=== PATIENT | male | born 1950 | race Hispanic/Latino ===

== ENCOUNTER 2017-03-23 13:26 | Inpatient (IN) | payer MEDICARE ==
[2017-03-23 15:49] VITALS: BMI 33.5
--- NOTE | 2017-03-23 16:02 | CP.PCM.HP ---
History of Present Illness - History of Present Illness History of Present Illness: Chief complaint status post right total knee surgery History of present illness: This is a 66-year-old male with past medical history of hypertension, diabetes, right DJD, hyperlipidemia, and osteoarthritis presenting status post right total knee surgery at [facility] 3 days ago. Patient states he has had knee trouble for years, and has failed outpatient therapy. He has no other complaints at this time, vitals are stable and he is in no acute distress. Review of systems: Per HPI, all other systems reviewed and negative by me Past medical history hypertension, diabetes mellitus, right DJD, hyperlipidemia , osteoarthritis Past surgical history: Denies other than recent right total knee Family history: Denies Social history: Former smoker 20 years ago smoked socially for 20 years, denies alcohol, denies IV drug abuse Medications as below No known drug allergies Vitals REVIEWED Vital signs as documented. Gen: WDWN, cooperative, alert HEENT: NCAT, PERRL, EOMI, no erythema, exudates, gross hearing intact, no lesions Neck: Soft, supple, no lymphadenopathy, no JVD Heart: +S1S2, RRR, No MRG Lung: CTAB, No WRR Abd: soft, NT, ND, BSx4, no HSM, no masses Ext: warm, well perfused, pedal pulses intact Neuro: AAOx3, Strength equal bilaterally UE/LE Skin: Warm, Dry, no rash Psych: Normal mood, affect with appropriate range Laboratory results reviewed in chart Assessment and plan This is a 66-year-old male with past medical history of hypertension, diabetes, right DJD, hyperlipidemia, and osteoarthritis presenting status post right total knee surgery at [facility] 3 days ago. Patient states he has had knee trouble for years, and has failed outpatient therapy. He has no other complaints at this time, vitals are stable and he is in no acute distress. Status post right total knee surgery Postop day #3 Dr. Lopes from [facility], orthopedic surgeon Pain control with Percocet Zofran for nausea VTE prophylaxis Lovenox 30 mg subcutaneous every 12 hours Physical therapy and occupational therapy Hypertension Stable Continue lisinopril 10 mg by mouth daily Diabetes mellitus Accu-Cheks Continue metformin and Januvia Insulin sliding scale Hyperlipidemia Continue simvastatin Stable VTE prophylaxis with Lovenox 30 mg subcutaneous every 12 hours For constipation Colace 100 mg by mouth twice a day when necessary Present on Admission - Present on Admission Any Indicators Present on Admission: No Past Patient History - Tetanus Immunizations Tetanus Immunization: >10 years Ago - Past Medical History & Family History Past Medical History?: Yes - Past Social History Smoking Status: Former Smoker Chewing Tobacco Use: No - CARDIAC Hx Cardiac Disorders: Yes Hx Hypercholesterolemia: Yes Hx Hypertension: Yes - PULMONARY Hx Respiratory Disorders: No - NEUROLOGICAL Hx Neurological Disorder: No - HEENT Hx HEENT Problems: Yes Hx Cataracts: Yes (SINCE RIGHT EYE-NO SURGERY) - RENAL Hx Chronic Kidney Disease: No - ENDOCRINE/METABOLIC Hx Diabetes Mellitus Type 2: Yes - HEMATOLOGICAL/ONCOLOGICAL Hx Blood Disorders: No - INTEGUMENTARY Hx Dermatological Problems: No - MUSCULOSKELETAL/RHEUMATOLOGICAL Hx Musculoskeletal Disorders: Yes Hx Osteoarthritis: Yes - GASTROINTESTINAL Hx Gastrointestinal Disorders: No - GENITOURINARY/GYNECOLOGICAL Hx Genitourinary Disorders: No - PSYCHIATRIC Hx Psychophysiologic Disorder: No - SURGICAL HISTORY Hx Surgeries: Yes - ANESTHESIA Hx Anesthesia: Yes Hx Anesthesia Reactions: No Hx Malignant Hyperthermia: No Meds Allergies/Adverse Reactions: Allergies Allergy/AdvReac Type Severity Reaction Status Date / Time No Known Allergies Allergy Verified 03/23/17 15:47
[2017-03-23] MEDS ORDERED: Enoxaparin 30 mg Syringe SC SCH (16:15)
[2017-03-23] MEDS: Oxycodone/Acetaminophen 5/325 mg Tab PO PRN ×2 (16:54→23:53)
[2017-03-23] MEDS: Pravastatin Sodium 20 MG TAB PO SCH (21:00)
[2017-03-24] MEDS: Oxycodone/Acetaminophen 5/325 mg Tab PO PRN ×5 (04:59→22:50)
[2017-03-24 07:31] LABS: HEMOGLOBIN 9.6 g/dL (12.0-18.0); MEAN CELL VOLUME 83.6 fl (80.0-94.0); MEAN CORPUSCULAR HEMOGLOBIN 28.7 pg (27.0-31.0); MEAN CORPUSCULAR HGB CONC 34.3 g/dL (33.0-37.0); RBC 3.36 Mil/uL (4.40-5.90); RED CELL DISTRIBUTION WIDTH 14.8 % (11.5-14.5); WHITE BLOOD COUNT 8.1 K/uL (4.8-10.8)
[2017-03-24 07:41] LABS: BLOOD UREA NITROGEN 15 mg/dl (9-20); GFR AFRICAN-AMERICAN > 60; GFR NON-AFRICAN AMERICAN > 60
[2017-03-24] MEDS: Multivitamin With Minerals Tab PO SCH (08:42)
[2017-03-24] MEDS: Enoxaparin 30 mg Syringe SC SCH ×2 (08:42→21:29)
[2017-03-24] MEDS: Pravastatin Sodium 20 MG TAB PO SCH (21:29)
[2017-03-25] MEDS: Oxycodone/Acetaminophen 5/325 mg Tab PO PRN ×4 (05:33→22:02)
[2017-03-25 08:27] VITALS: RESP 20
[2017-03-25] MEDS: Enoxaparin 30 mg Syringe SC SCH ×2 (08:40→21:19)
[2017-03-25] MEDS: Multivitamin With Minerals Tab PO SCH (08:41)
[2017-03-25] MEDS: Pravastatin Sodium 20 MG TAB PO SCH (21:18)
[2017-03-26] MEDS: Oxycodone/Acetaminophen 5/325 mg Tab PO PRN ×6 (02:03→22:07)
[2017-03-26] MEDS: Multivitamin With Minerals Tab PO SCH (08:15)
[2017-03-26] MEDS: Enoxaparin 30 mg Syringe SC SCH ×2 (08:16→21:27)
--- NOTE | 2017-03-26 17:39 | CP.PCM.CON ---
History of Present Illness - History of Present Illness History of Present Illness: Dr Jang PMR consultation on Thompson Ny, born 1950, who has been admitted to [facility] TCU following a right TKR post op feels very good pain is well controlled had a BMx2 today good appetite using CPM Review of Systems - Constitutional Constitutional: absent: Anorexia, Chills - EENT Eyes: absent: Blurred Vision Nose/Mouth/Throat: absent: Nasal Congestion - Cardiovascular Cardiovascular: absent: Chest Pain - Respiratory Respiratory: absent: Cough, Dyspnea - Gastrointestinal Gastrointestinal: absent: Abdominal Pain Past Patient History - Tetanus Immunizations Tetanus Immunization: >10 years Ago - Past Medical History & Family History Past Medical History?: Yes - Past Social History Smoking Status: Former Smoker (quit >20 years ago) Alcohol: Social Drugs: Denies Home Situation {Lives}: Alone (has girlfriend, ground floor) - CARDIAC Hx Cardiac Disorders: Yes - PULMONARY Hx Respiratory Disorders: No - NEUROLOGICAL Hx Neurological Disorder: No - HEENT Hx HEENT Problems: Yes Hx Cataracts: Yes (SINCE RIGHT EYE-NO SURGERY) - RENAL Hx Chronic Kidney Disease: No - ENDOCRINE/METABOLIC Hx Diabetes Mellitus Type 2: Yes - HEMATOLOGICAL/ONCOLOGICAL Hx AIDS: No Hx Human Immunodeficiency Virus (HIV): No - INTEGUMENTARY Hx Dermatological Problems: No - MUSCULOSKELETAL/RHEUMATOLOGICAL Hx Falls: No - GASTROINTESTINAL Hx Gastrointestinal Disorders: No - GENITOURINARY/GYNECOLOGICAL Hx Genitourinary Disorders: No - PSYCHIATRIC Hx Psychophysiologic Disorder: No - SURGICAL HISTORY Hx Surgeries: Yes - ANESTHESIA Hx Anesthesia: Yes Hx Anesthesia Reactions: No Hx Malignant Hyperthermia: No Meds Allergies/Adverse Reactions: Allergies Allergy/AdvReac Type Severity Reaction Status Date / Time No Known Allergies Allergy Verified 03/23/17 15:47 - Medications Medications: Current Medications Docusate Sodium (Colace) 100 mg PO BID [facility] Last Admin: 03/26/17 16:48 Dose: 100 mg Enoxaparin Sodium (Lovenox) 30 mg SC Q12 [facility] PRN Reason: Protocol Last Admin: 03/26/17 08:16 Dose: 30 mg Lisinopril (Zestril) 10 mg PO DAILY [facility] Last Admin: 03/26/17 08:15 Dose: 10 mg Metformin HCl (Glucophage) 850 mg PO BID [facility] Last Admin: 03/26/17 16:48 Dose: 850 mg Multivitamins/Minerals (Therapeutic-M Tab) 1 tab PO DAILY [facility] Last Admin: 03/26/17 08:15 Dose: 1 tab Pravastatin Sodium (Pravachol) 20 mg PO HS [facility] Last Admin: 03/25/17 21:18 Dose: 20 mg Sitagliptin Phosphate (Januvia) 100 mg PO DAILY [facility] Last Admin: 03/26/17 08:16 Dose: 100 mg Physical Exam - Constitutional Appears: Non-toxic, No Acute Distress - Head Exam Head Exam: ATRAUMATIC, NORMAL INSPECTION, NORMOCEPHALIC - ENT Exam ENT Exam: Mucous Membranes Moist - Respiratory Exam Respiratory Exam: NORMAL BREATHING PATTERN - Cardiovascular Exam Cardiovascular Exam: REGULAR RHYTHM - GI/Abdominal Exam GI & Abdominal Exam: absent: Distended - Extremities Exam Extremities exam: Positive for: pedal edema (mild). Negative for: calf tenderness - Neurological Exam Neurological exam: Alert, CN II-XII Intact, Oriented x3 - Psychiatric Exam Psychiatric exam: Normal Affect, Normal Mood Results - Vital Signs Recent Vital Signs: Last Vital Signs Temp 98.2 F 03/26/17 16:43 Pulse 99 H 03/26/17 16:43 Resp 20 03/26/17 16:43 BP 150/84 03/26/17 16:43 Pulse Ox 100 03/26/17 16:43 - Labs Result Diagrams: 03/24/17 06:30 03/24/17 06:30 Labs: Laboratory Results - last 24 hr 03/25/17 03/26/17 03/26/17 20:54 06:04 11:00 POC Glucose (mg/dL) 212 H 201 H 199 H 03/26/17 16:04 POC Glucose (mg/dL) 242 H Assessment & Plan - Assessment and Plan (Free Text) Assessment: PT/OT to continue to help increase functional independence Pain: controlled Vascular: no evidence of DVT GI: No evidence of constipation or diarrhea Patient continues to be an excellent TCU rehabilitation candidate and will have continued focused PT, OT and recreational therapy to help facilitate a safe and appropriate d/c plan
[2017-03-26] MEDS: Pravastatin Sodium 20 MG TAB PO SCH (21:26)
[2017-03-27] MEDS: Oxycodone/Acetaminophen 5/325 mg Tab PO PRN ×5 (03:28→21:18)
[2017-03-27] MEDS: Enoxaparin 30 mg Syringe SC SCH ×2 (08:35→21:19)
[2017-03-27] MEDS: Multivitamin With Minerals Tab PO SCH (08:36)
--- NOTE | 2017-03-27 13:47 | CP.PCM.PN ---
Subjective - Date & Time of Evaluation Date of Evaluation: 03/27/17 Time of Evaluation: 13:30 - Subjective Subjective: Hospitalist Progress Note (Patient was seen and examined at 1:30 PM 03/27/17 [id number] ) 66 year old male who is S/P Right TKR at [facility] on 03/20/17 and was transferred to TCU for PT/OT. Currently upon FULL ROS: NO chest pain, NO palpitations, NO SOB/Cough/Wheezing, NO Abdominal Pain, NO n/v /d/c, NO burning/pain with urinations, NO lightheadedness/dizziness, NO headaches, NO new changes in vision/eye pain, NO new changes in hearing/ear pain , NO paresthesias Exam: HEENT: NCA, EOMI, PERRLA, NO lymphadenopathy, NO thyromegaly, NO pharyngeal erythema/exudate, Nasal Turbinates are moist/nonerythematous/nonedematous, Oral mucosa is moist Cardio: NS1 and NS2, NO M/R/G Resp: CTA B/L, NO R/R/W GI: BSx4, Soft, NT, ND, NO HSM, NO guarding/rebound tenderness Neuro: CN II through XII Extremities: Pulses are strong and equal, Capillary Refill is 2 seconds, Right Knee Surgical Site with Norah without signs of cellulitis and there is NO wound dehiscence or exudate Assessment and Plan: 1). S/P Right TKR POD #7 PT/OT Lovenox 30 mg SC Q12H 2). Hx HTN Lisinopril 10 mg PO 1x/day 3). Hx DM 2 Metformin 850 mg PO 2x/day Januvia 100 mg PO 1x/day 4). Hx HLD Pravastatin 20 mg PO HS 5). Anemia Secondary to Chronic Disease? F/U CBC with differential 03/28/17 to make sure that the HgB/Hct are stable. 5). Prophylactic Measures Colace 100 mg PO 2x/day Lovenox 30 mg SC Q12H MVI 1 tablet PO 1x/day Percocet 1 tab PO PRN Moderate Pain and 2 tab PO PRN Severe Pain Objective - Vital Signs/Intake and Output Vital Signs (last 24 hours): Temp Pulse Resp BP Pulse Ox 98.1 F 82 20 143/70 99 03/27/17 10:00 03/27/17 10:00 03/27/17 10:00 03/27/17 10:00 03/27/17 10:00 - Medications Medications: Current Medications Docusate Sodium (Colace) 100 mg PO BID [facility] Last Admin: 03/27/17 08:35 Dose: 100 mg Enoxaparin Sodium (Lovenox) 30 mg SC Q12 [facility] PRN Reason: Protocol Last Admin: 03/27/17 08:35 Dose: 30 mg Lisinopril (Zestril) 10 mg PO DAILY [facility] Last Admin: 03/27/17 08:36 Dose: 10 mg Metformin HCl (Glucophage) 850 mg PO BID [facility] Last Admin: 03/27/17 08:36 Dose: 850 mg Multivitamins/Minerals (Therapeutic-M Tab) 1 tab PO DAILY [facility] Last Admin: 03/27/17 08:36 Dose: 1 tab Oxycodone/Acetaminophen (Percocet 5/325 Mg Tab) 2 tab PO Q4 PRN PRN Reason: Pain, severe (8-10) Stop: 03/29/17 18:08 Last Admin: 03/27/17 13:04 Dose: 2 tab Oxycodone/Acetaminophen (Percocet 5/325 Mg Tab) 1 tab PO Q4 PRN PRN Reason: Pain, moderate (4-7) Stop: 03/29/17 18:09 Last Admin: 03/27/17 03:28 Dose: 1 tab Pravastatin Sodium (Pravachol) 20 mg PO HS [facility] Last Admin: 03/26/17 21:26 Dose: 20 mg Sitagliptin Phosphate (Januvia) 100 mg PO DAILY [facility] Last Admin: 03/27/17 08:36 Dose: 100 mg - Labs Labs: 03/24/17 06:30 03/24/17 06:30
[2017-03-27] MEDS: Pravastatin Sodium 20 MG TAB PO SCH (21:19)
[2017-03-28] MEDS: Oxycodone/Acetaminophen 5/325 mg Tab PO PRN ×4 (03:19→20:23)
[2017-03-28 07:11] LABS: BASO % 0.6 % (0.0-2.0); EOS # 0.1 K/uL (0.0-0.7); HEMOGLOBIN 9.4 g/dL (12.0-18.0); LYMPH # 1.4 K/uL (1.0-4.3); LYMPH % 21.4 % (20.0-40.0); MEAN CELL VOLUME 84.3 fl (80.0-94.0); MEAN CORPUSCULAR HEMOGLOBIN 28.3 pg (27.0-31.0); MEAN CORPUSCULAR HGB CONC 33.6 g/dL (33.0-37.0); MEAN PLATELET VOLUME 7.8 fl (7.2-11.7); MONO # 0.7 K/uL (0.0-0.8); MONO % 10.7 % (0.0-10.0); NEUT # 4.3 K/uL (1.8-7.0); NEUT % 65.3 % (50.0-75.0); NRBC % 0.1 % (0.0-0.0); RBC 3.32 Mil/uL (4.40-5.90); WHITE BLOOD COUNT 6.6 K/uL (4.8-10.8)
[2017-03-28 07:17] LABS: ALB/GLOB RATIO 1.1 (1.0-2.1); ALBUMIN 3.6 g/dL (3.5-5.0); ALT/SGPT 45 U/L (21-72); AST/SGOT 41 U/L (17-59); BLOOD UREA NITROGEN 16 mg/dl (9-20); CALCIUM 9.3 mg/dL (8.4-10.2); GFR AFRICAN-AMERICAN > 60; GFR NON-AFRICAN AMERICAN > 60
[2017-03-28] MEDS: Enoxaparin 30 mg Syringe SC SCH ×2 (08:49→21:25)
[2017-03-28] MEDS: Multivitamin With Minerals Tab PO SCH (08:50)
[2017-03-28] MEDS: Pravastatin Sodium 20 MG TAB PO SCH (21:25)
[2017-03-29] MEDS: Oxycodone/Acetaminophen 5/325 mg Tab PO PRN ×2 (02:41→08:33)
[2017-03-29 07:55] VITALS: BP 131/74; PULSE 79; TEMP 97.7; O2SAT 100
[2017-03-29] MEDS: Enoxaparin 30 mg Syringe SC SCH (08:34)
[2017-03-29] MEDS: Multivitamin With Minerals Tab PO SCH (08:34)
--- NOTE | 2017-03-29 12:06 | CP.PCM.DIS ---
Provider - Provider Date of Admission: 03/23/17 15:49 Attending physician: Lizy De La Cruz DO Consults: Dr Jang Time Spent in preparation of Discharge (in minutes): 35 Diagnosis - Discharge Diagnosis (1) Status post total knee replacement, right Status: Acute Comment: continue PT on outpatient basis 3x a week (2) Hypertension Status: Chronic Comment: BP stable. on Lisinopril (3) DM2 (diabetes mellitus, type 2) Status: Acute Comment: BS uncontrolled. Metformin 850mg PO BID. Januvia 100mg PO OD (4) Acute blood loss anemia Status: Acute Comment: from blood loss during surgery Hospital Course - Lab Results Lab Results: Most Recent Lab Values WBC 6.6 K/uL (4.8-10.8) 03/28/17 06:15 RBC 3.32 Mil/uL (4.40-5.90) L 03/28/17 06:15 Hgb 9.4 g/dL (12.0-18.0) L 03/28/17 06:15 Hct 28.0 % (35.0-51.0) L 03/28/17 06:15 MCV 84.3 fl (80.0-94.0) 03/28/17 06:15 MCH 28.3 pg (27.0-31.0) 03/28/17 06:15 MCHC 33.6 g/dL (33.0-37.0) 03/28/17 06:15 RDW 15.0 % (11.5-14.5) H 03/28/17 06:15 Plt Count 313 K/uL (130-400) D 03/28/17 06:15 MPV 7.8 fl (7.2-11.7) 03/28/17 06:15 Neut % (Auto) 65.3 % (50.0-75.0) 03/28/17 06:15 Lymph % (Auto) 21.4 % (20.0-40.0) 03/28/17 06:15 [place] % (Auto) 10.7 % (0.0-10.0) H 03/28/17 06:15 Eos % (Auto) 2.0 % (0.0-4.0) 03/28/17 06:15 Baso % (Auto) 0.6 % (0.0-2.0) 03/28/17 06:15 Neut # 4.3 K/uL (1.8-7.0) 03/28/17 06:15 Lymph # 1.4 K/uL (1.0-4.3) 03/28/17 06:15 [place] # 0.7 K/uL (0.0-0.8) 03/28/17 06:15 Eos # 0.1 K/uL (0.0-0.7) 03/28/17 06:15 Baso # 0.0 K/uL (0.0-0.2) 03/28/17 06:15 Sodium 135 mmol/l (132-148) 03/28/17 06:15 Potassium 5.2 MMOL/L (3.6-5.0) H 03/28/17 06:15 Chloride 95 mmol/L (98-107) L 03/28/17 06:15 Carbon Dioxide 31 mmol/L (22-30) H 03/28/17 06:15 Anion Gap 14 (10-20) 03/28/17 06:15 BUN 16 mg/dl (9-20) 03/28/17 06:15 Creatinine 0.9 mg/dL (0.8-1.5) 03/28/17 06:15 Est GFR ( Amer) > 60 03/28/17 06:15 Est GFR (Non-Af Amer) > 60 03/28/17 06:15 POC Glucose (mg/dL) 236 mg/dL (65-110) H 03/29/17 10:58 Random Glucose 181 mg/dL (75-110) H 03/28/17 06:15 Calcium 9.3 mg/dL (8.4-10.2) 03/28/17 06:15 Total Bilirubin 0.4 mg/dl (0.2-1.3) 03/28/17 06:15 AST 41 U/L (17-59) 03/28/17 06:15 ALT 45 U/L (21-72) 03/28/17 06:15 Alkaline Phosphatase 71 U/L (38-126) 03/28/17 06:15 Total Protein 6.9 G/DL (6.3-8.2) 03/28/17 06:15 Albumin 3.6 g/dL (3.5-5.0) 03/28/17 06:15 Globulin 3.3 gm/dL (2.2-3.9) 03/28/17 06:15 Albumin/Globulin Ratio 1.1 (1.0-2.1) 03/28/17 06:15 - Hospital Course Hospital Course: 66 yo male with history of HTN, DM2, Osteoarthritis and HLD had right TKR at [facility] on 03/20/2017 after failing conservative management. He was later transferred to TCU for PT/OT and did well. Discharge Exam - Head Exam Head Exam: ATRAUMATIC, NORMAL INSPECTION, NORMOCEPHALIC - Eye Exam Eye Exam: absent: Scleral icterus - ENT Exam ENT Exam: Mucous Membranes Moist - Respiratory Exam Respiratory Exam: absent: Wheezes, Respiratory Distress - Cardiovascular Exam Cardiovascular Exam: REGULAR RHYTHM, +S1, +S2 - GI/Abdominal Exam GI & Abdominal Exam: Soft. absent: Tenderness - Rectal Exam Rectal Exam: Deferred - Neurological Exam Neurological exam: Alert, Oriented x3 - Psychiatric Exam Psychiatric exam: Normal Affect - Skin Skin Exam: Dry, Intact Discharge Plan - Discharge Medications Prescriptions: oxyCODONE/Acetaminophen [Percocet 5/325 mg Tab] 1 tab PO Q4H PRN #30 tab PRN Reason: pain, mild to moderate - Follow Up Plan Condition: GOOD Disposition: HOME/ ROUTINE Instructions: Hypertension (DC), Hypertension (GEN)
== END 2017-03-29 13:10 | disposition home or self-care (01) | DRG 560 ==
LOC: H.TCU 15:49
PROVIDERS: ADMIT Student in an Organized Health Care Education/Training Program; ATTEND Student in an Organized Health Care Education/Training Program
PROC: F07Z9FZ Gait Training/Functional Ambulation Treatment using Assistive, Adaptive, Supportive or Protective Equipment (ICD-10-PCS; principal; 2017-03-23)
PROC: F07Z5FZ Bed Mobility Treatment using Assistive, Adaptive, Supportive or Protective Equipment (ICD-10-PCS; 2017-03-23)
PROC: F07L6FZ Therapeutic Exercise Treatment of Musculoskeletal System - Lower Back / Lower Extremity using Assistive, Adaptive, Supportive or Protective Equipment (ICD-10-PCS; 2017-03-23)
PROC: F08Z4ZZ Home Management Treatment (ICD-10-PCS; 2017-03-23)
DX: Z47.1 Aftercare following joint replacement surgery (principal); D62 Acute posthemorrhagic anemia; I10 Essential (primary) hypertension; Z96.651 Presence of right artificial knee joint; E11.9 Type 2 diabetes mellitus without complications; E78.5 Hyperlipidemia, unspecified; K59.00 Constipation, unspecified; Z87.891 Personal history of nicotine dependence; E78.00 Pure hypercholesterolemia, unspecified